=== PATIENT | male | born 1975 | race Caucasian/White ===

== ENCOUNTER → 2018-05-12 | Outpatient (CLI) | payer OTHER | LOC: BMCIMAGING 10:33 | PROVIDERS: ATTEND Internal Medicine | DX: M11.261 Other chondrocalcinosis, right knee (principal); M25.861 Other specified joint disorders, right knee ==

== ENCOUNTER 2018-06-14 12:16 | Day surgery (SDC) | payer OTHER ==
--- NOTE | 2018-06-14 06:41 | PDHPUP ---
History & Physical Update H&P update statement: This history and physical update is based on an assessment of the patient which was completed after admission or registration (within 24 hours), but prior to the surgery/procedure. H&P update: no change in patient's condition since H&P completed
[2018-06-14] MEDS ORDERED: ceFAZolin 2 GM/DEXTROSE 100 ML IV ONE (12:41)
[2018-06-14] MEDS ORDERED: LR 1,000 ML IV SCH (12:41)
[2018-06-14] MEDS ORDERED: LR 1,000 ML IV ONE (12:42)
--- NOTE | 2018-06-14 12:43 | POSTANESTH ---
Post Anesthetic Evaluation Cardiovascular Status: Normal, Stable Respiratory Status: Normal, Stable Level of Consciousness/Mental Status: Can Participate in Eval, Alert and Oriented Pain Control: Adequate, Prn Tx Ordered (knee "sore." Ketorolac ordered.) Nausea/Vomiting Control: Adequate, Prn Tx Ordered Complications Possibly Related to Anesthesia: None Noted
--- NOTE | 2018-06-14 12:44 | PDANEPAE ---
ANE History of Present Illness 42 yo obese male for R knee arthroscopy. ANE Past Medical History - Cardiovascular History Hx Hypertension: No Hx Arrhythmias: No Hx Chest Pain: No Hx Coronary Artery / Peripheral Vascular Disease: No Hx CHF / Valvular Disease: No Hx Palpitations: No - Pulmonary History Hx COPD: No Hx Asthma/Reactive Airway Disease: No Hx Recent Upper Respiratory Infection: No Hx Oxygen in Use at Home: No Hx Sleep Apnea: Yes Sleep Apnea Screening Result - Last Documented: Positive Pulmonary History Comment: Pt has not used any YOHAN device since weight loss from gastric bypass. Has not had any sleep study to prove lack of YOHAN. - Neurologic History Hx Cerebrovascular Accident: No Hx Seizures: No Hx Dementia: No - Endocrine History Hx Diabetes: Yes Hypothyroid: No Hyperthyroid: No Obesity: yes, severe Endocrine History Comment: DM II - METFORMIN - recently restarted due to weight gain after significant weight loss following gastric bypass - Renal History Hx Renal Disorders: No - Liver History Hx Hepatic Disorders: No - Neurological & Psychiatric Hx Hx Neurological and Psychiatric Disorders: No - Cancer History Hx Cancer: No - Congenital Disorder History Hx Congenital Disorders: No - GI History Hx Gastrointestinal Disorders: Yes Gastrointestinal History Comment: GASTRIC BYPASS - Other Health History Other Health History: NEG - Surgical History Prior Surgeries: R KNEE SURGERY. GASTRIC BYPASS ANE Review of Systems Review of systems is: negative Review of Systems: - Exercise capacity METS (RN): 4 METS - Systems Constitutional: Reports: no symptoms Respiratory: Reports: no symptoms ANE Patient History - Allergies Allergies/Adverse Reactions: shellfish derived Allergy (Verified 06/11/18 08:31) - Home Medications Home Medications: Metformin HCl [Fortamet] 06/14/18 [Last Taken 06/14/18] - NPO status NPO Since - Liquids (Date): 06/14/18 NPO Since - Liquids (Time): 12:00 (Gatorade until noon today) - Anes Hx Anes Hx: no prior problems - Smoking Hx Smoking Status: Never smoked Marijuana use: No - Alcohol Use Alcohol Use: Other (none for one month) - Family Anes Hx Family Anes Hx: neg - N/A Family Hx Anesthesia Complications: NEG ANE Labs/Vital Signs - Vital Signs Vital Signs: reviewed preoperatively; see RN documention for details Height: 177.8 cm Weight: 173.726 kg ANE Physical Exam - Airway Neck exam: FROM, short neck Mallampati Score: Class 3 Mouth exam: normal dental/mouth exam - Pulmonary Pulmonary: clear to auscultation, other (distant BS) - Cardiovascular Cardiovascular: regular rate and rhythym - ASA Status ASA Status: III ANE Anesthesia Plan Anesthesia Plan: GA w LMA (gastric suction port)
[2018-06-14] MEDS ORDERED: ceFAZolin 3 GM in D5W 100 ML IV ONE (13:00)
[2018-06-14] MEDS ORDERED: BUPIVACAINE/EPI 0.5% 30 ML SDV ONE (13:25)
[2018-06-14] MEDS ORDERED: EPINEPHrine 1 MG/ML INJ ONE (13:25)
[2018-06-14] MEDS ORDERED: EPINEPHrine 30 MG/30 ML MDV (0.1 MG/0.1 ML) ONE (13:38)
[2018-06-14] MEDS ORDERED: fentaNYL 100 MCG/2 ML INJ ONE ×2 (14:05→15:35)
[2018-06-14] MEDS ORDERED: PROPOFOL/EMULSION 500 MG/50 ML BOTTLE IV ONE (14:06)
[2018-06-14] MEDS ORDERED: ONDANSETRON 4 MG/2 ML VIAL ONE (14:06)
[2018-06-14] MEDS ORDERED: PROMETHAZINE HCL 25 MG/ML INJ IVP PRN (15:00)
[2018-06-14] MEDS ORDERED: NALOXONE HCL 0.4 MG/ML INJ IVP PRN ×2 (15:00)
[2018-06-14] MEDS ORDERED: ACETAMINOPHEN 500 MG TAB PO PRN (15:00)
[2018-06-14] MEDS ORDERED: HYDROCODONE/APAP 5/325 TAB PO PRN (15:00)
[2018-06-14] MEDS ORDERED: LR 500 ML IV PRN (15:00)
[2018-06-14] MEDS ORDERED: KETOROLAC 30 MG/1 ML SDV IVP ONE (15:19)
[2018-06-14] MEDS ORDERED: KETOROLAC 30 MG/1 ML SDV ONE (15:35)
[2018-06-14] MEDS: fentaNYL 100 MCG/2 ML INJ IVP PRN ×2 (15:37→15:45)
[2018-06-14] MEDS ORDERED: HYDROCODONE/APAP 5/325 TAB ONE (15:59)
--- NOTE | 2018-06-14 16:06 | POSTOPPROG ---
Post Op Note Date of Operation: 06/14/18 Surgeon: Hay Reynolds [employer] Member: [email or web address] Anesthesiologist: flaca Anesthesia: GET(General Endotracheal) Pre-op Diagnosis: menicsus tear right knee Post-op Diagnosis: same Indication: same Procedure: right knee scope pmmt, plmt, lb removal, chondroplasty Inf/Abcess present in the surg proc area at time of surgery?: No Depth: Deep Incisional (Fascial) EBL: Minimal
--- NOTE | 2018-06-14 18:13 | GOP ---
DATE OF OPERATION: 06/14/2018 SURGEON: Hay Reynolds MD RADIO COMMENTATOR: Fantasma Denson, surgical instrument repair specialist who was a medical necessity for the entirety of the case. PREOPERATIVE DIAGNOSIS: 1. Right knee medial lateral meniscus tears. 2. Chondromalacia of patella and loose bodies. POSTOPERATIVE DIAGNOSIS: 1. Right knee medial lateral meniscus tears. 2. Chondromalacia of patella and loose bodies. PROCEDURE PERFORMED: Right knee arthroscopy with partial medial, partial lateral meniscectomies, pat ellofemoral chondroplasty-extensive, and open loose body removal. FINDINGS: INDICATIONS: Vasquez Rhodes is a 42-year-old, obese gentleman who has undergone previous gastric bypa ssing. He has persistent pain, catching and mechanical symptoms to his right knee. He has failed at tempts at conservative management. I have therefore recommended operative intervention. I have outl ined the surgical procedure, risks, benefits, and alternatives. He wished to proceed. Written conse nt was signed and placed in the patient's chart. DESCRIPTION OF PROCEDURE: The patient was identified in the preanesthesia area. The right knee evelyn rly demarcated as the operative site with an indelible marker. He was given 2 g of Ancef intravenous ly en route to the operative suite. In the OR, general endotracheal anesthesia was administered. At tention was turned to the right knee, which was sterilely prepped and draped in usual fashion. No to urniquet was utilized. Appropriate time-out procedure was carried out. The limb was sterilely prepp ed and draped in usual fashion. Appropriate incisions were made over the superior medial, inferior m edial, inferolateral aspects of the knee and diagnostic arthroscopy ensued. The suprapatellar pouch demonstrated several small ostial cartilaginous fragments which were evacuated. The articular surfac e of the patella demonstrated grade 2 chondral changes of the superior aspect. The central cartilage was intact. The trochlea demonstrated grade 4 chondral change with a large loose osteochondral defe ct, and this was removed and debrided and tapered to the remaining surfaces. This was a stellate daniel earance, approximately 2.5 cm across in diameter. Medial lateral gutters were free of any other loos e or foreign debris. The medial compartment was entered. The articular surface of the femur and tib ia demonstrated grade 1 and early grade 2 softening. This was debrided in a limited fashion. There was a complex tear through the midbody of the medial meniscus. This was debrided and tapered to the remaining meniscus. Approximately 30% to 40% of the inner-outer diameter was removed in this area. The intercondylar notch was entered. The ACL was visualized. There was gross bone spur formation wills rrounding the ACL, consistent with arthritic deterioration. The lateral compartment was entered. Th ere was grade 4 chondral change in the weightbearing portion of the femur and tibia with complex fray ing of the surrounding cartilage, and a complex tear through the lateral meniscus. Subtotal lateral meniscectomy was performed, chondroplasty was performed to the femur and tibia to a clean and stable edge, and all loose particulate debris was evacuated. The arthroscope was then moved into the anteri or fat pad. There was a 2 cm loose body across the anterior surface of the ACL. This was removed wi th a mini open arthrotomy through the medial portal, and withdrawn. The portal sites closed using 2- 0 Monocryl and 4-0 nylon. The knee instilled with 20 cc of 0.5% Marcaine with epinephrine. A steril e compressive dressing was applied. The patient was awakened, extubated and taken to the recovery ro in good stable condition. TOTAL TOURNIQUET TIME: None. COMPLICATIONS: None. SPECIMENS TO PATHOLOGY: None. IMPLANTS: None. /[id number]/MODL
[2018-06-14 19:52] VITALS: BP 138/72
== END 2018-06-14 19:30 | disposition home or self-care (01) ==
LOC: FSGY 12:16
PROVIDERS: ATTEND Orthopaedic Surgery
PROC: 0SBC4ZZ Excision of Right Knee Joint, Percutaneous Endoscopic Approach (ICD-10-PCS; principal; 2018-06-14 14:15)
PROC: 0SBC0ZZ Excision of Right Knee Joint, Open Approach (ICD-10-PCS; principal; 2018-06-14 14:15)
PROC: 0YQF4ZZ Repair Right Knee Region, Percutaneous Endoscopic Approach (ICD-10-PCS; principal; 2018-06-14 14:15)
DX: S83.281A Other tear of lateral meniscus, current injury, right knee, initial encounter (principal); X58.XXXA Exposure to other specified factors, initial encounter
CPT/HCPCS: J0171; J0690; J1885; J2405; J2704; J3010